=== PATIENT | male | born 1950 | race Caucasian/White ===

== ENCOUNTER 2020-02-22 10:48 | Emergency (ER) | payer BC, SELFPAY ==
[2020-02-22 11:03] VITALS: BP 150/92; PULSE 76; RESP 16; TEMP 36.8; O2SAT 99
--- NOTE | 2020-02-22 11:22 | ED.BACK ---
HPI - Back Pain/Injury General Chief Complaint: Back Pain/Injury Stated Complaint: lower back pain Time Seen by Provider: 02/22/20 11:13 Source: patient and RN notes reviewed Mode of arrival: ambulatory Limitations: no limitations History of Present Illness HPI Narrative: Patient presents today complaining of low back pain. He fell off the second rung of a ladder this morning at 5 AM onto some concrete at home. Denies any head strike or loss of consciousness. Denies radiation of the pain. Denies numbness or tingling in the extremities or genitals. Denies any loss of bowel or bladder control. He took a dose of Tylenol at 6 AM without relief. Currently rates his pain 12/12. MD elicited complaint: back pain Related Data Home Medications Medication Instructions Recorded Confirmed bimatoprost [Lumigan] 1 drp HS 02/22/20 02/22/20 brinzolamide-brimonidine 1 drp BID 02/22/20 02/22/20 [Simbrinza] timolol maleate 1 drp BID 02/22/20 02/22/20 Allergies Allergy/AdvReac Type Severity Reaction Status Date / Time No Known Allergies Allergy Verified 02/22/20 10:52 Review of Systems Review of Systems: Narrative: CONSTITUTIONAL: Denies body aches, fever, chills, or sweats. EYES: Denies visual changes, redness, or discharge. ENT: Denies rhinorrhea, congestion, sore throat, or otalgia. CARDIOVASCULAR: Denies chest pain, palpitations, or edema. RESPIRATORY: Denies cough or dyspnea. GASTROINTESTINAL: Denies abdominal pain, nausea, vomiting, or diarrhea. GENITOURINARY: Denies dysuria or hematuria. SKIN: Denies rash, itching, or wounds. MUSCULOSKELETAL: Denies joint pain, or myalgia. + Low back pain NEUROLOGIC: Denies headache, numbness, tingling, or weakness. PSYCH: Denies depression or anxiety. [facility] Past Medical History Medical History (Updated 02/22/20 @ 11:27 by Colette Chaves, [place], ) Glaucoma Hypercholesterolemia Hypertension Family History Family History (Updated 04/01/14 @ 07:13 by DOCTOR UNKNOWN) Mother Hypertension Family history of coronary artery disease Father Cerebrovascular accident Family history of malignant neoplasm Social History Social History Smoking status: Never smoker Alcohol intake: current Gender identity (if verbalized by the patient): Male Comments At time of signature, I have reviewed and agree with nursing past medical, surgical, social and family history unless otherwise noted. Please see nursing chart for further information. There is no relevant family history pertinent to the presenting complaint Exam Narrative: Exam Narrative: GENERAL: Well-appearing, well-nourished, and in no acute distress. HEAD: Normocephalic, atraumatic. EYES: EOMI. No redness or drainage. Conjunctivae normal. ENT: Mucous membranes pink and moist. NECK: Normal AROM. CHEST: No respiratory distress. MUSCULOSKELETAL: No bony tenderness of the spine. No step-off or deformity noted. No bruising or edema noted. No paraspinal muscle tenderness bilaterally. Localizes pain to the lower lumbar area that can extend, from hip to hip when it gets bad. Sensation intact. Saddle sensation intact. Capillary refill normal. Posterior tibial pulses normal. Foot push and pulls equal and strong.. EXTREMITIES: Normal range of motion. No edema. SKIN: Warm, dry, no rash. Capillary refill normal. Normal skin turgor. NEURO: No focal deficits. Alert and oriented x3. Gait steady. PSYCH: Normal affect. No signs of depression or anxiety. Course Vital Signs Vital signs: Vital Signs Temperature 98.3 F 02/22/20 11:03 Pulse Rate 76 02/22/20 11:03 Respiratory Rate 16 02/22/20 11:03 Blood Pressure 150/92 H 02/22/20 11:03 Pulse Oximetry 99 02/22/20 11:03 Temperature 98.3 F 02/22/20 11:03 Pulse Rate 76 02/22/20 11:03 Respiratory Rate 16 02/22/20 11:03 Blood Pressure 150/92 H 02/22/20 11:03 Pulse Oximetry 99 02/22/20 11:03 Reviewed. Pt has been instructed to fo
== END 2020-02-22 11:30 | disposition home or self-care (01) ==
PROVIDERS: Emergency Provider Nurse Practitioner; PCP Family Medicine
DX: S39.012A Strain of muscle, fascia and tendon of lower back, initial encounter (principal); W11.XXXA Fall on and from ladder, initial encounter; H40.9 Unspecified glaucoma; E78.00 Pure hypercholesterolemia, unspecified; I10 Essential (primary) hypertension
CPT/HCPCS: 99213; G0463

== ENCOUNTER 2020-02-26 07:30 | Emergency (ER) | payer BC, SELFPAY ==
--- NOTE | ~2020-02-26 | CT_ITS ---
EXAMINATION: CT lumbar spine wo con DATE: 02/26/2020 08:11 INDICATION: Low back pain. Fall from ladder one week ago. TECHNIQUE: Computed tomography (CT) of the lumbar spine was performed without intravenous contrast. A utomated exposure control and iterative reconstruction technique were employed. The dose-length produ ct was 825.01 mGy-cm. COMPARISON: CT abdomen and pelvis 07/22/2014 FINDINGS: There is 6 degrees levocurvature of lumbar spine. There is 3 mm anterolisthesis of L2 on L3 . There is a compression fracture of L3 with 1/5 loss of height. There is mild chronic anterior wedgi ng of T12 and L1 vertebral bodies. There are Schmorl's nodes from T11-T12 through L1-L2. There is mil dly decreased disc height at L3-L4. The following disc levels are specifically discussed: L1-L2: The disc does not extend beyond the endplate margin. There is severe bilateral facet joint ost eoarthritis. There is no neural foraminal stenosis. There is no central canal stenosis. L2-L3: The disc is bulging. There is severe bilateral facet joint osteoarthritis. There is mild bilat eral neural foraminal stenosis. There is moderate central canal stenosis. L3-L4: The disc is bulging. There is severe right and moderate left facet joint osteoarthritis. There is moderate right and mild left neural foraminal stenosis. There is mild central canal stenosis. L4-L5: The disc is bulging. There is severe bilateral facet joint osteoarthritis. There is moderate b ilateral neural foraminal stenosis. There is mild central canal stenosis. L5-S1: The disc is bulging. There is mild right and moderate left facet joint osteoarthritis. There i s mild right and moderate left neural foraminal stenosis. There is mild central canal stenosis. IMPRESSION: 1. Acute L3 compression fracture. 2. Moderate lumbar spondylosis. Reviewed, dictated and finalized at location A.
[2020-02-26 07:30] VITALS: BP 152/96; PULSE 100; RESP 19; TEMP 36.4; O2SAT 95
--- NOTE | 2020-02-26 07:40 | ED.BACK ---
HPI - Back Pain/Injury General Chief Complaint: Back Pain/Injury Stated Complaint: back spasm Time Seen by Provider: 02/26/20 07:30 Source: RN notes reviewed History of Present Illness HPI Narrative: Patient presents emergency department via EMS for low back pain. Patient states that on 02/21 he fell off of a ladder approximately 2 steps landed flat on his back. He states that that time he had gone to the urgent care and been diagnosed with lumbar strain states no x-rays been taken. States that he began to have severe muscle spasms in his lower back yesterday with spasms of pain that come in waves. States is worse on the right. He denies any new trauma or injury. He denies any fevers or chills abdominal pain nausea vomiting numbness or tingling in the extremities bowel or bladder incontinence or any other symptoms. States he took no previous pain medication for the symptoms Related Data Home Medications Medication Instructions Recorded Confirmed bimatoprost [Lumigan] 1 drp HS 02/22/20 02/22/20 brinzolamide-brimonidine 1 drp BID 02/22/20 02/22/20 [Simbrinza] timolol maleate 1 drp BID 02/22/20 02/22/20 Allergies Allergy/AdvReac Type Severity Reaction Status Date / Time No Known Allergies Allergy Verified 02/26/20 07:39 Review of Systems Review of Systems: Narrative: Gen.: Denies fevers or chills ENT: Denies congestion Respiratory: Denies shortness of breath or cough CV: Denies chest pain or palpitations GI: Denies abdominal pain nausea, emesis or diarrhea denies burning, urgency, frequency or hematuria Musculoskeletal: See HPI Neuro: Denies numbness, tingling, weakness or focal weakness Skin: Denies rash Except as documented, all other systems reviewed and negative PMFSH Past Medical History Medical History Glaucoma Hypercholesterolemia Hypertension Family History Family History (Updated 04/01/14 @ 07:13 by DOCTOR UNKNOWN) Mother Hypertension Family history of coronary artery disease Father Cerebrovascular accident Family history of malignant neoplasm Social History Social History Smoking status: Never smoker Alcohol intake: current Gender identity (if verbalized by the patient): Male Exam Narrative: Exam Narrative: APPEARANCE: No acute distress, nontoxic, resting in bed Eyes: EOMI HEENT: Normocephalic, atraumatic, CV: Regular rate and rhythm without murmur RESPIRATORY: No respiratory distress. Clear to auscultation bilaterally. Abdomen: Soft and nontender, no rebound or guarding MUSCULOSKELETAl: Moves all extremities, no clubbing cyanosis or edema Back: No midline lumbar tenderness to palpation or step-off, tender to palpation over right paravertebral muscles L3-5 , pain increased with forward flexion NEURO: Awake and alert. Following commands, speech normal, no focal deficits, muscle strength 5 out of 5 bilateral lower extremities, bilateral patellar reflex 2+ SKIN:: Warm, dry. Normal Color no rash or lesions Course Course Emergency Course: Discussed with Dr. Meneses presentation work-up. Agrees with plan for discharge with follow-up as an outpatient Discussed with patient results of workup and diagnosis. Discussed need for follow-up with primary care, proper use of medication, and reasons to return to the emergency department. Patient understands and agrees to current treatment plan Vital Signs Vital signs: Vital Signs Temperature 97.5 F L 02/26/20 07:30 Pulse Rate 100 02/26/20 07:30 Respiratory Rate 19 02/26/20 07:30 Blood Pressure 152/96 H 02/26/20 07:30 Pulse Oximetry 95 02/26/20 07:30 Temperature 97.5 F L 02/26/20 07:30 Pulse Rate 100 02/26/20 07:30 Respiratory Rate 19 02/26/20 07:30 Blood Pressure 152/96 H 02/26/20 07:30 Pulse Oximetry 95 02/26/20 07:30 MDM - Back Pain/Injury Imaging Data Radiologist's impression:
[2020-02-26] MEDS: KETOROLAC 30 MG/ML VIAL (*BKC) IV PUSH (07:49)
== END 2020-02-26 09:36 | disposition home or self-care (01) ==
PROVIDERS: Emergency Provider Emergency Medicine; PCP Family Medicine
DX: S32.038A Other fracture of third lumbar vertebra, initial encounter for closed fracture (principal); H40.9 Unspecified glaucoma; E78.00 Pure hypercholesterolemia, unspecified; I10 Essential (primary) hypertension; M47.816 Spondylosis without myelopathy or radiculopathy, lumbar region; W11.XXXA Fall on and from ladder, initial encounter
CPT/HCPCS: 72131; 96374; 96375; 99284; J1885; J3360

== ENCOUNTER → 2020-04-18 07:57 | Outpatient (CLI) | payer BC, SELFPAY ==
--- NOTE | ~2020-04-18 | XR_ITS ---
XR lumbar spine 2-3V 04/18/2020 09:44 Indication: L3 compression fracture Procedure: 3 views lumbar spine Comparison: CT dated 02/26/2020 Findings: Mild superior endplate compression fracture of L3 without significant change to appearance allowing for differences of technique. There is disc narrowing at L3-4, L4-5 and L5-S1. No evidence f or spondylolisthesis. Mild levocurvature of the lumbar spine. Sacral foramen are symmetric. Impression: 1: Stable height of L3 compression fracture compared with CT dated 02/26/2020 Allowing for differences of technique. 2: Mild lumbar spondylosis. Reviewed, dictated and finalized at location B. Impression: 1: Stable height of L3 compression fracture compared with CT dated 02/26/2020 Allowing for differences of technique. 2: Mild lumbar spondylosis.
== END ==
PROVIDERS: PCP Family Medicine; Visit Provider Neurological Surgery
DX: S32.030A Wedge compression fracture of third lumbar vertebra, initial encounter for closed fracture (principal); X58.XXXA Exposure to other specified factors, initial encounter; M47.896 Other spondylosis, lumbar region
CPT/HCPCS: 72100

== ENCOUNTER 2020-07-13 09:34 | Outpatient (CLI) | payer BC, MEDICARE, SELFPAY ==
--- NOTE | 2020-07-13 11:30 | NEURO_ITS ---
Impression: # Complains of numbness of feet. # Borderline neuropathy with left lower extremity decreased responses. # Needle/EMG exam neurogenic in bilateral EDB. # Higher involvement superimposed on neuropathy needs to be ruled out due to asymmetrical responses. Nerve Conduction Studies Anti Sensory Summary Table Stim Site NR Peak (ms) P-T Amp (?V) Site1 Site2 Delta-P (ms) Dist (cm) Tino (m/s) Left Sup Fibular Anti Sensory (Ant Lat Mall) NO RESPONSE 14 cm NR 14 cm Ant Lat Mall 16.0 Right Sup Fibular Anti Sensory (Ant Lat Mall) 14 cm 3.2 5.4 14 cm Ant Lat Mall 3.2 16.0 50 Left Sural Anti Sensory (Lat Mall) Calf 4.0 24.6 Calf Lat Mall 4.0 16.0 40 Right Sural Anti Sensory (Lat Mall) Calf 3.0 17.9 Calf Lat Mall 3.0 16.0 53 Motor Summary Table Stim Site NR Onset (ms) O-P Amp (mV) Site1 Site2 Delta-0 (ms) Dist (cm) Tino (m/s) Left Peroneal Motor (Vastus Med) Ankle 5.2 0.8 Popit Ankle 9.8 39.0 40 Popit 15.0 1.5 Right Peroneal Motor (Vastus Med) Ankle 5.4 0.9 Popit Ankle 9.5 38.0 40 Popit 14.9 1.5 Left Tibial Motor (Abd Suresh Brev) Ankle 5.5 0.3 Knee Ankle 10.7 44.0 41 Knee 16.2 1.0 Right Tibial Motor (Abd Suresh Brev) Ankle 5.7 2.8 Knee Ankle 10.5 43.0 41 Knee 16.2 2.0 F Wave Studies NR F-Lat (ms) L-R F-Lat (ms) Left Peroneal (Mrkrs) (EDB) 62.19 1.29 Right Peroneal (Mrkrs) (EDB) 63.48 1.29 Left Tibial (Mrkrs) (Abd Hallucis) 63.49 0.35 Right Tibial (Mrkrs) (Abd Hallucis) 63.84 0.35 EMG Side Muscle Nerve Root Ins Act Fibs Amp Dur Recrt Comment Right AntTibialis Dp Br Fibular L4-5 Nml Nml Nml Nml Nml Right Gastroc Tibial S1-2 Nml Nml Nml Nml Nml Right Fibularis Long Sup Br Fibular L5-S1 Nml Nml Nml Nml Nml Right Flex Dig Long Tibial L5-S2 Nml Nml Nml >12ms Nml Right Ext Dig Brev Dp Br Fibular L5, S1 Nml Nml Nml >12ms Reduced Left AntTibialis Dp Br Fibular L4-5 Nml Nml Nml Nml Nml Left Gastroc Tibial S1-2 Nml Nml Nml Nml Nml Left Fibularis Long Sup Br Fibular L5-S1 Nml Nml Nml Nml Nml Left Flex Dig Long Tibial L5-S2 Nml Nml Nml >12ms Nml Left Ext Dig Brev Dp Br Fibular L5, S1 Nml Nml Nml >12ms Reduced MTDD
== END 2020-07-13 09:35 | disposition home or self-care (01) ==
LOC: ANHNEURO 09:38
PROVIDERS: PCP Family Medicine; Visit Provider Physician Assistant Medical
DX: R20.2 Paresthesia of skin (principal)
CPT/HCPCS: 95886; 95910

== ENCOUNTER 2021-07-12 09:48 | Outpatient (CLI) | payer MEDICARE, SELFPAY ==
--- NOTE | 2021-07-12 11:00 | NEURO_ITS ---
Impression: # Complains of numbness of feet. 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 # Needle/EMG neurogenic changes in EDB, right more than left. # Clinical correlation recommended. Nerve Conduction Studies Anti Sensory Summary Table Stim Site NR Peak (ms) P-T Amp (?V) Site1 Site2 Delta-P (ms) Dist (cm) Tino (m/s) Left Sup Fibular Anti Sensory (Ant Lat Mall) 14 cm 3.9 11.2 14 cm Ant Lat Mall 3.9 16.0 41 Right Sup Fibular Anti Sensory (Ant Lat Mall) 14 cm 3.9 7.7 14 cm Ant Lat Mall 3.9 16.0 41 Left Sural Anti Sensory (Lat Mall) Calf 3.6 11.4 Calf Lat Mall 3.6 16.0 44 Right Sural Anti Sensory (Lat Mall) Calf 3.4 4.7 Calf Lat Mall 3.4 16.0 47 Motor Summary Table Stim Site NR Onset (ms) O-P Amp (mV) Site1 Site2 Delta-0 (ms) Dist (cm) Tino (m/s) Left Peroneal Motor (Vastus Med) Ankle 4.5 1.9 Popit Ankle 10.3 40.0 39 Popit 14.8 1.3 Right Peroneal Motor (Vastus Med) Ankle 5.1 3.0 Popit Ankle 10.1 38.0 38 Popit 15.2 1.6 Left Tibial Motor (Abd Suresh Brev) Ankle 5.0 0.7 Knee Ankle 11.9 43.0 36 Knee 16.9 0.9 Right Tibial Motor (Abd Suresh Brev) Ankle 5.2 2.0 Knee Ankle 10.7 39.0 36 Knee 15.9 1.6 F Wave Studies NR F-Lat (ms) L-R F-Lat (ms) Left Peroneal (Mrkrs) (EDB) 62.32 0.40 Right Peroneal (Mrkrs) (EDB) 62.71 0.40 Left Tibial (Mrkrs) (Abd Hallucis) 62.76 0.35 Right Tibial (Mrkrs) (Abd Hallucis) 63.11 0.35 EMG Side Muscle Nerve Root Ins Act Fibs Amp Dur Recrt Comment Right AntTibialis Dp Br Fibular L4-5 Nml Nml Nml Nml Nml Right Gastroc Tibial S1-2 Nml Nml Nml Nml Nml Right Fibularis Long Sup Br Fibular L5-S1 Nml Nml Nml Nml Nml Right Flex Dig Long Tibial L5-S2 Nml Nml Nml Nml Nml Right Ext Dig Brev Dp Br Fibular L5, S1 Nml Nml Incr >12ms Reduced Left AntTibialis Dp Br Fibular L4-5 Nml Nml Nml Nml Nml Left Gastroc Tibial S1-2 Nml Nml Nml Nml Nml Left Fibularis Long Sup Br Fibular L5-S1 Nml Nml Nml Nml Nml Left Flex Dig Long Tibial L5-S2 Nml Nml Nml Nml Nml Left Ext Dig Brev Dp Br Fibular L5, S1 Nml Nml Incr >12ms Reduced MTDD
== END 2021-07-12 09:49 | disposition home or self-care (01) ==
LOC: ANHNEURO 09:50
PROVIDERS: PCP Family Medicine; Visit Provider Psychiatry & Neurology Neurology
DX: R20.2 Paresthesia of skin (principal); G62.9 Polyneuropathy, unspecified
CPT/HCPCS: 95886; 95910

== ENCOUNTER 2021-12-02 20:39 | Observation (INO) | payer MEDICARE, SELFPAY ==
--- NOTE | ~2021-12-02 | XR_ITS ---
EXAMINATION: XR chest 2V Exam Date/Time: 12/02/2021 21:00 CDT CLINICAL HISTORY: RT SIDED chest pain TODAY, HX HTN, NO CARDIAC HX Comparison: 08/10/2014. RESULT: Lines, tubes, and devices: None. Lungs and pleura: Clear. Cardiomediastinal silhouette: Stable cardiomediastinal silhouette. Other: No acute osseous or upper abdominal finding. IMPRESSION: No acute cardiopulmonary process Reviewed, dictated and finalized at location K.
--- NOTE | 2021-12-02 20:42 | ECG_ITS ---
Measurements Intervals [place] Rate: 94 P: 35 ME: 164 QRS: -9 QRSD: 89 T: 69 QT: 323 QTc: 405 Interpretive Statements SINUS RHYTHM MINIMAL Q WAVES- HIGH LATERAL LEADS BASELINE ARTIFACT- I, II, AVR BORDERLINE ECG Electronically Signed On 12-03-2021 6:36:40 CDT by Christoph Rosales D.O.
[2021-12-02 21:14] VITALS: BP 167/76; PULSE 85; RESP 15; TEMP 36.8; O2SAT 100; O2SAT 99
--- NOTE | 2021-12-02 21:29 | ED.CHESTPAIN ---
HPI - Chest Pain General Chief Complaint: Chest Pain Stated Complaint: chest pain Time Seen by Provider: 12/02/21 20:52 History of Present Illness HPI narrative: Patient presents with chest pain. Ports he had intermittent chest pain since about 2:00 in the afternoon is mainly on his right chest he describes an achy sensation and sometimes rates to his left arm sometimes radiate to his back. Symptoms have not improved throughout the day so came to the ER for evaluation. Reports he tried working out was afternoon that did trigger his chest pain that is exacerbation with physical activity. His pain was associated with mild shortness of breath denies any diaphoresis nausea or vomiting. Related Data Home Medications Medication Instructions Recorded Confirmed brinzolamide-brimonidine 1 drp EACH EYE BID 12/03/21 12/03/21 [Simbrinza] Allergies Allergy/AdvReac Type Severity Reaction Status Date / Time No Known Allergies Allergy Verified 12/02/21 21:18 Review of Systems Review of Systems: CONSTITUTIONAL: Denies fever, chills, or sweats. EYES: Denies visual changes, redness, or discharge. ENT: Denies rhinorrhea, congestion, sore throat, or otalgia. CARDIOVASCULAR: Denies palpitations, or edema. RESPIRATORY: Denies cough. GASTROINTESTINAL: Denies abdominal pain, nausea, vomiting, or diarrhea. GENITOURINARY: Denies dysuria or hematuria. SKIN: Denies rash or itching. MUSCULOSKELETAL: Denies back pain, joint pain, or myalgia. NEUROLOGIC: Denies headache, numbness, dizziness, or weakness. PSYCHIATRIC: Denies anxiety or depression. All systems reviewed & are unremarkable except as noted in HPI and below PMFSH Past Medical History Medical History BMI 32.0-32.9,adult Glaucoma Hypercholesterolemia Hypertension Family History Family History (Updated 12/03/21 @ 00:56 by Megan Caldwell RN) Mother Family history of coronary artery disease Hypertension COPD (chronic obstructive pulmonary disease) Father Family history of malignant neoplasm Cerebrovascular accident Sibling Brain cancer Social History Social History Smoking packs per day: 1.5 Smoking cigarettes per day: 30.0 Years smoked: 14 Smoking pack-years: 21.00 Smoking status: Former smoker Tobacco type: cigarettes Second hand tobacco smoke exposure: No Alcohol intake: current Drinks per week: 10 Substance use: never Substance use type: does not use Gender identity (if verbalized by the patient): Male Spiritual care concerns: No Exam Narrative: GENERAL: Well-appearing, well-nourished, and in no acute distress. HEAD: Normocephalic, atraumatic. EYES: PERRLA and EOMI. ENT: Nares clear, no rhinorrhea or epistaxis. Mucous membranes moist. NECK: Supple. No masses. No JVD CHEST: Clear to auscultation. No respiratory distress. No wheezes rales or rhonchi HEART: Regular rate and rhythm. No murmur heard. Normal peripheral pulses. ABDOMEN: Soft, nontender, nondistended, normal active bowel sounds. EXTREMITIES: Normal range of motion. No edema. SKIN: Warm, dry, no rash. NEURO: No focal deficits. Alert and oriented x3. PSYCH: Normal mood and affect. Course Reevaluation(s) Reevaluation #1: Patient resting comfortably, has no active chest pain. Results thus far reviewed with patient. Also discussed work-up with cardiology as well as hospitalist team. Due to patient's risk factors he will be admitted for further management. Patient is comfortable inpatient plan. Date: 12/02/21 Time: 23:38 Vital Signs Vital signs: Vital Signs Temperature 36.8 C 12/02/21 21:14 Pulse Rate 85 12/02/21 21:14 Respiratory Rate 15 12/02/21 21:14 Blood Pressure 167/76 H 12/02/21 21:14 Pulse Oximetry 99 12/02/21 21:14 Temperature 36.4 C 12/03/21 06:38 Pulse Rate 83 12/03/21 06:38 Respiratory Rate 20 12/03/21 06:38
[2021-12-02 21:32] LABS: Basophils Absolute Auto 0.1 K/mm3 (0.0-0.1); Basophils Percent Auto 0.7 % (0.2-1.2); Eosinophils Absolute Auto 0.4 K/mm3 (0-0.3); Eosinophils Percent Auto 4.9 % (0-4.4); Hematocrit 44.8 % (42.0-52.0); Hemoglobin 15.1 g/dL (14.0-18.0); Immature Granulocyte Absolute 0.02 K/mm3 (0.00-0.031); Immature Granulocyte Percent A 0.2 % (0-0.5); Lymphocytes Absolute Auto 2.87 K/mm3 (0.9-3.2); Lymphocytes Percent Auto 35.7 % (18.3-44.2); Mean Corpuscular HGB Conc 33.7 g/dl (32-36); Mean Corpuscular Hemoglobin 30.3 pg (26-34); Mean Platelet Volume 10.2 fl (7.4-10.4); Monocytes Absolute Auto 0.9 K/mm3 (0.1-0.6); Monocytes Percent Auto 10.9 % (2.6-8.5); Neutrophils Absolute Auto 3.8 K/mm3 (1.3-6.7); Neutrophils Percent Auto 47.6 % (45.5-73.1); Platelet Count Result 283 k/mm3 (150-375); Red Blood Count 4.98 M/mm3 (4.6-6.20); Red Cell Distribution Width 12.1 % (11.5-14.5)
[2021-12-02 21:39] LABS: Prothrombin Time 12.6 Seconds (11.1-14.7)
[2021-12-02 21:40] LABS: Partial Thromboplastin Time 32.8 SECONDS (22.3-36.8)
[2021-12-02 21:43] LABS: Alanine Aminotransferase 34 U/L (4-50); Albumin Level 4.5 g/dL (3.5-5.1); Alkaline Phosphatase 74 U/L (38-126); Anion Gap 8 mmol/L (8-16); Aspartate Amino Transferase 31 U/L (17-59); Bilirubin,Total 0.4 mg/dL (0.2-1.3); Blood Urea Nitrogen 15 mg/dL (9-20); Carbon Dioxide 24 mmol/L (22-30); Chloride 107 mmol/L (98-107); Estimated CRCL calculation 98 ml/min; Estimated Glomerular Filt Rate > 60; Glucose 112 mg/dL (65-110); Lipase 247 U/L (23-300); Potassium 4.1 mmol/L (3.4-5.0); Sodium 139 mmol/L (137-145)
[2021-12-02 21:53] LABS: Troponin I < 0.012 ng/mL (0.000-0.034)
[2021-12-02 23:50] LABS: Troponin I < 0.012 ng/mL (0.000-0.034)
[2021-12-02 23:51] VITALS: BP 162/85; PULSE 74; RESP 18; O2SAT 100
[2021-12-03] VITALS (13 sets, daily range): BP systolic 137–186; BP diastolic 62–92; PULSE 65–99; RESP 20–22; TEMP 36.2–36.4; O2SAT 96–100; BMI 31.6; BMI 33.3
--- NOTE | 2021-12-03 00:32 | PC.NURSE ---
This patient, Von A Pena, was admitted to IMU Room 202-01 at 0027 on 12/03/21. Patient oriented to hospital policies and general routines including ID bracelet, bed and alarms, visiting hours, pain management, procedures, bathroom and other care routines, personal items, smoking policy, room service/diet, and visiting hours. Information on how to activate the Rapid Response Team has been discussed. Patient is encouraged to report perceived risks to care and to ask questions if they do not understand what they are told or what they should do.
--- NOTE | 2021-12-03 00:49 | PM.IMHP ---
H&P: HPI History of Present Illness Date/Time: 12/03/21 00:49 Chief Complaint: Chest pain. Narrative: This is a 71-year-old male with past medical history significant for hypertension, dyslipidemia. Patient presents to the emergency room due to chest pain localized to the right side which is no radiating is intermittent is 3/10 in intensity has had for roughly 1 day duration known accompanied by diaphoresis or nausea or vomiting or dizziness, no palpitations, no leg swelling, no PND, no orthopnea, this happened while the patient was on his glider and was during not intense work out session, patient took flexor ill but did not go away and decided to come to the emergency room for further evaluation. In emergency room preliminary workup has been essentially nonrevealing. Patient is been admitted for further evaluation management and treatment. Review of Systems Review of Systems: Right-sided chest pain. Constitutional: Constitutional: Denies chills, Denies fatigue, Denies fever(s), Denies malaise, Denies night sweats and Denies weakness Eyes: Eyes: Denies change in vision ENT: Denies dysphagia, Denies vertigo, Denies dizziness, Denies nasal congestion, Denies nasal discharge, Denies nasal obstruction and Denies odynophagia Cardiovascular: Cardiovascular: Reports chest pain, Denies diaphoresis, Denies pedal edema, Denies irregular heart rhythm, Denies claudication, Denies leg edema, Denies lightheadedness, Denies radiating jaw, neck or arm pain, Denies palpitations, Denies dyspnea on exertion, Denies orthopnea and Denies paroxysmal nocturnal dyspnea Respiratory: Respiratory: Denies cough Gastrointestinal: Gastrointestinal: Denies abdominal pain, Denies dyspepsia, Denies heartburn, Denies diarrhea, Denies nausea and Denies vomiting Genitourinary: Genitourinary: Denies dysuria Musculoskeletal: Musculoskeletal: Denies back pain, Denies arthralgias, Denies joint swelling and Denies neck pain Integumentary/Breasts: Skin/Breast: Denies rash Neurologic: Denies focal weakness and Denies Sensory deficit (Neuro) Psychiatric: Psychiatric: Reports no additional psychiatric complaints and Reports as per HPI Endocrine: Endocrine: Denies cold intolerance, Denies heat intolerance, Denies polyphagia, Denies polydipsia and Denies palpitations Hematologic/Lymphatic: Hematologic/Lymphatic: Reports no additional hematologic/lymphatic complaints and Reports as per HPI Allergic/Immunologic: Allergic/Immunologic: Reports no additional allergic/immunologic complaints and Reports as per HPI PMFSH Past Medical History Medical History BMI 32.0-32.9,adult Glaucoma Hypercholesterolemia Hypertension Family History Family History (Updated 12/03/21 @ 00:56 by Megan Caldwell RN) Mother Family history of coronary artery disease Hypertension COPD (chronic obstructive pulmonary disease) Father Family history of malignant neoplasm Cerebrovascular accident Sibling Brain cancer Social History Social History Smoking packs per day: 1.5 Smoking cigarettes per day: 30.0 Years smoked: 14 Smoking pack-years: 21.00 Smoking status: Former smoker Tobacco type: cigarettes Second hand tobacco smoke exposure: No Alcohol intake: current Drinks per week: 10 Substance use: never Substance use type: does not use Gender identity (if verbalized by the patient): Male Spiritual care concerns: No Meds Home Medications and Allergies Home Medications Medication Instructions Recorded Confirmed Type atorvastatin 40 mg tablet 40 mg PO DAILY #30 tablet 10/23/21 12/03/21 Rx lisinopril 30 mg tablet 30 mg PO DAILY #90 tablet 11/20/21 12/03/21 Rx brinzolamide-brimonidine 1 drp EACH EYE BID 12/03/21 12/03/21 History [Simbrinza] Allergies Allergy/AdvReac Type Severity Reaction Status Date / Time No Known Allergies Allergy
[2021-12-03 07:22] LABS: Troponin I < 0.012 ng/mL (0.000-0.034)
[2021-12-03] MEDS: ENOXAPARIN 40 MG/0.4 ML SYRINGE SUB-Q (08:33)
[2021-12-03 09:12] LABS: Basophils Absolute Auto 0.1 K/mm3 (0.0-0.1); Basophils Percent Auto 0.8 % (0.2-1.2); Eosinophils Absolute Auto 0.3 K/mm3 (0-0.3); Eosinophils Percent Auto 3.2 % (0-4.4); Hematocrit 46.5 % (42.0-52.0); Hemoglobin 15.4 g/dL (14.0-18.0); Immature Granulocyte Absolute 0.03 K/mm3 (0.00-0.031); Immature Granulocyte Percent A 0.4 % (0-0.5); Lymphocytes Absolute Auto 2.27 K/mm3 (0.9-3.2); Lymphocytes Percent Auto 27.2 % (18.3-44.2); Mean Corpuscular HGB Conc 33.1 g/dl (32-36); Mean Corpuscular Hemoglobin 30.3 pg (26-34); Mean Corpuscular Volume 91.5 fl (80-100); Mean Platelet Volume 10.2 fl (7.4-10.4); Monocytes Absolute Auto 0.8 K/mm3 (0.1-0.6); Monocytes Percent Auto 9.3 % (2.6-8.5); Neutrophils Absolute Auto 4.9 K/mm3 (1.3-6.7); Neutrophils Percent Auto 59.1 % (45.5-73.1); Platelet Count Result 286 k/mm3 (150-375); Red Blood Count 5.08 M/mm3 (4.6-6.20); Red Cell Distribution Width 12.1 % (11.5-14.5); White Blood Count 8.4 K/mm3 (4.5-10.0)
[2021-12-03 09:21] LABS: Alanine Aminotransferase 33 U/L (4-50); Albumin Level 4.7 g/dL (3.5-5.1); Alkaline Phosphatase 81 U/L (38-126); Anion Gap 8 mmol/L (8-16); Aspartate Amino Transferase 25 U/L (17-59); Bilirubin,Total 0.5 mg/dL (0.2-1.3); Blood Urea Nitrogen 11 mg/dL (9-20); Calcium 8.9 mg/dL (8.4-10.2); Carbon Dioxide 25 mmol/L (22-30); Chloride 108 mmol/L (98-107); Estimated CRCL calculation 101 ml/min; Estimated Glomerular Filt Rate > 60; Glucose 109 mg/dL (65-110); Potassium 4.1 mmol/L (3.4-5.0); Sodium 141 mmol/L (137-145)
--- NOTE | 2021-12-03 09:37 | PM.CNCAR ---
Assessment and Plan Assessment and plan (1) Chest pain, atypical: Code(s): R07.89 - Other chest pain Status: Acute Assessment and Plan: Episodic chest discomfort which is very brief and atypical, very unlikely to be cardiac, probably musculoskeletal. Negative troponins and normal EKG Okay for discharge from my point of view. Will arrange for an outpatient stress test to be thorough. (2) Essential hypertension: Code(s): I10 - Essential (primary) hypertension Status: Acute Assessment and Plan: Was running a little high on admission, better today. (3) Mixed hyperlipidemia: Code(s): E78.2 - Mixed hyperlipidemia Status: Acute Assessment and Plan: Takes atorvastatin. (4) Family history of coronary artery disease: Code(s): Z82.49 - Family history of ischemic heart disease and other diseases of the circulatory system Status: Acute History of Present Illness History of Present Illness Consult date/time: 12/03/21 09:37 Requesting physician: Perfecto Tavares MD Consult reason: chest pain Reason For Visit: unstable angina Narrative: Von Pena this 71-year-old male whom I was asked to see at the request of Dr. Tavares for my advice and opinion regarding chest pain in consultation. History of hypertension and hyperlipidemia. Nonsmoker. Positive family history of CAD. The patient has been in his normal state of health until yesterday when he was sitting watching the baseball game and had a brief episode of right parasternal aching which lasted for about a second or 2, which felt like a pulled muscle. This dull ache recurred off and on through the day but again only lasted for second or two at most, and was completely gone in between times. At one point he felt like he needed to take more deep breaths although he was not very short of breath. No nausea, vomiting or diaphoresis. He did his usual exercise on the [place] 3 times and once he had a again another brief episode of aching lasting for a second. He has had a couple episodes today as well. In general the patient has been able to exert with no particular problems with shortness of breath or chest pain. No typical anginal symptoms. Review of Systems Constitutional: Constitutional: Denies fatigue and Denies weakness Eyes: Eyes: Reports no additional eye complaints ENT: Denies epistaxis and Denies nasal congestion Cardiovascular: Cardiovascular: Reports chest pain, Denies diaphoresis, Denies pedal edema and Denies lightheadedness Respiratory: Respiratory: Denies cough and Denies dyspnea Gastrointestinal: Gastrointestinal: Denies abdominal pain and Denies hematochezia Genitourinary: Genitourinary: Denies hematuria Musculoskeletal: Musculoskeletal: Reports no additional musculoskeletal complaints Integumentary/Breasts: Skin/Breast: Denies rash Neurologic: Denies confusion Psychiatric: Psychiatric: Denies behavioral changes [facility] Past Medical History Medical History (Updated 12/03/21 @ 10:06 by Kiah Valenzuela MD) BMI 32.0-32.9,adult Colon cancer Disease-free after 5 years Family history of coronary artery disease Glaucoma Hypercholesterolemia Hypertension Family History Family History (Updated 12/03/21 @ 10:05 by Kiah Valenzuela MD) Mother Family history of coronary artery disease Hypertension COPD (chronic obstructive pulmonary disease) Heart attack Couple of heart attacks in her 60s, 80 y.o. Father Family history of malignant neoplasm Cerebrovascular accident a couple years after a massive stroke during carotid endarterectomy. at age of 8080 years old Bladder cancer Sibling Brain cancer Social History Social History (Updated 12/03/21 @ 10:05 by Kiah Valenzuela MD) Social History: , 1 daughter. Retired, used to sell plumbing equipment. Smoking packs per day: 1.5 Smoking cigarettes per day: 30.0 Years smok
[2021-12-03] MEDS: lisinopriL 10 MG TABLET 30 MG PO (09:58)
[2021-12-03] MEDS: BRIMONIDINE TARTRATE 0.2% OP SOLN 5 ML BTL 1 DROP EACH EYE (10:00)
[2021-12-03] MEDS: BRINZOLAMIDE 1% OPHTH SUSP 10 ML 1 DROP EACH EYE (10:00)
--- NOTE | 2021-12-03 12:06 | PM.DS ---
DS: Admitting Diagnosis Discharge Date 12/03/21 1600 Admitting Diagnosis Chest Pain DS: Discharge Diagnosis Discharge Diagnosis (1) Chest pain, atypical: Code(s): R07.89 - Other chest pain Status: Acute Assessment and Plan: Vital signs have been stable during this admission. Initial EKG with no changes. Serial troponins all negative. Cardiology has been consulted feels this is more more likely to be musculoskeletal pain. Cardiology okay with discharge, and will follow up outpatient for a stress test. (2) BMI 32.0-32.9,adult: Code(s): Z68.32 - Body mass index [BMI] 32.0-32.9, adult Status: Acute Assessment and Plan: Lifestyle and diet modifications (3) Essential hypertension: Code(s): I10 - Essential (primary) hypertension Status: Acute Assessment and Plan: Continue home meds. Patient is normotensive upon discharge. He was mildly hypertensive upon admission, but this normalized. (4) Osteoarthritis of thoracic spine: Code(s): M47.814 - Spondylosis without myelopathy or radiculopathy, thoracic region Status: Acute Assessment and Plan: Tylenol p.r.n. for pain (5) Malignant neoplasm of sigmoid colon: Code(s): C18.7 - Malignant neoplasm of sigmoid colon Status: Acute Assessment and Plan: Status post colon resection Follow-up in outpatient setting (6) DVT prophylaxis: Code(s): Z29.9 - Encounter for prophylactic measures, unspecified Status: Acute Assessment and Plan: SCDs & Lovenox DS: Summary Hospital Course Reason for hospitalization: Chest Pain Hospital Course: See above for full hospital course Status at Discharge Overall status at discharge: patient is progressing back to baseline Time Spent with Patient Time attestation: Total time spent providing and/or coordinating discharge services: 35min Time spent: Greater than 30 minutes Exam Narrative: GENERAL APPEARANCE: Alert and oriented x 3, in no apparent distress. HEENT: PERRL, EOMI. Sclerae anicteric. Moist mucous membranes. NECK: Supple. No JVD or obvious carotid bruits. RESPIRATORY: Respirations are nonlabored. Breath sounds are equal and clear bilaterally. No wheezes, Rhonchi, or rales. CARDIOVASCULAR: Regular rate and rhythm with normal S1-S2. No murmurs, gallops, or rubs. GASTROINTESTINAL: Soft, flat, and benign. No mass, tenderness, guarding, or rebound. No organomegaly or hernia. Bowel sounds are present. SKIN: Warm, dry, well perfused. Good turgor. No lesions, nodules, or rashes noted. Warm and dry. No rash or lesions on limited exam. EXTREMITIES: No cyanosis, clubbing, or edema. Radial and pedal pulses intact. NEUROLOGICAL: Alert. Cranial nerves 2-12 are grossly intact. No gross focal deficits to casual conversation. PSYCHIATRIC: Pleasant and cooperative with normal mood and affect. DS: Data Data Completed and Pending Labs on day of discharge: Labs from last 24 hours 12/03/21 12/03/21 12/03/21 08:47 08:47 06:52 WBC 8.4 RBC 5.08 Hgb 15.4 Hct 46.5 MCV 91.5 MCH 30.3 MCHC 33.1 RDW 12.1 Plt Count 286 MPV 10.2 Immature Gran % (Auto) 0.4 Neut % (Auto) 59.1 Lymph % (Auto) 27.2 [place] % (Auto) 9.3 H Eos % (Auto) 3.2 Baso % (Auto) 0.8 Lymph # (Auto) 2.27 [place] # (Auto) 0.8 H Eos # (Auto) 0.3 Baso # (Auto) 0.1 Abs Immat Gran (auto) 0.03 Absolute Neuts (auto) 4.9 Absolute Nucleated RBC 0.0 Nucleated RBC % 0.0 PT INR APTT Sodium 141 Potassium 4.1 Chloride 108 H Carbon Dioxide 25 Anion Gap 8 BUN 11 Creatinine 0.80 Estim Creat Clear Calc 101 Estimated GFR > 60 Glucose 109 Calcium 8.9 Total Bilirubin 0.5 AST 25 ALT 33 Alkaline Phosphatase 81 Troponin I < 0.012 Total Protein 7.0 Albumin 4.7 Lipase 12/02/21 12/02/21
== END 2021-12-03 12:45 | disposition home or self-care (01) ==
LOC: ANHED 23:39 → ANHIMU 12-03 00:31
PROVIDERS: Student in an Organized Health Care Education/Training Program; Admitting Provider Internal Medicine; Emergency Provider Emergency Medicine; PCP Family Medicine; Visit Provider Family Medicine
DX: R07.89 Other chest pain (principal); R06.02 Shortness of breath; E78.2 Mixed hyperlipidemia; I10 Essential (primary) hypertension; M47.814 Spondylosis without myelopathy or radiculopathy, thoracic region; H40.9 Unspecified glaucoma; Z87.891 Personal history of nicotine dependence; Z85.038 Personal history of other malignant neoplasm of large intestine; Z90.49 Acquired absence of other specified parts of digestive tract; E66.9 Obesity, unspecified; Z68.33 Body mass index [BMI] 33.0-33.9, adult; Z82.49 Family history of ischemic heart disease and other diseases of the circulatory system
CPT/HCPCS: 36415; 71046; 80053; 83690; 84484; 85025; 85610; 85730; 93005; 96372; 99285; A9270; G0378; J1650

== ENCOUNTER → 2022-06-14 10:03 | Outpatient (CLI) | payer MEDICARE, SELFPAY ==
--- NOTE | ~2022-06-14 | XR_ITS ---
EXAMINATION: XR thoracic spine 3V DATE: 06/14/2022 10:15 INDICATION: Mid back pain TECHNIQUE: AP, lateral and lateral swimmer's views of the thoracic spine were obtained. COMPARISON: 01/28/2018; MRI, 02/20/2018 FINDINGS: Bone alignment is normal. Again noted is mild chronic anterior wedging of the mid and lower thoracic spine without significant change. Small degenerative osteophytes project from the anterior endplates of multiple vertebral bodies. The bones are osteopenic which limits the sensitivity for fra cture however none is seen. IMPRESSION: 1. Mild thoracic spondylosis without acute findings or significant interval change. Reviewed, dictated and finalized at location B. MBLER FLEXIBLE LEADS IMPRESSION: 1. Mild thoracic spondylosis without acute findings or significant interval bibiana e.
== END ==
PROVIDERS: PCP Family Medicine; Visit Provider Physician Assistant Medical
DX: M47.894 Other spondylosis, thoracic region (principal)
CPT/HCPCS: 72072

== ENCOUNTER → 2023-10-01 08:55 | Outpatient (CLI) | payer MEDICARE, SELFPAY ==
--- NOTE | ~2023-10-01 | XR_ITS ---
EXAMINATION: XR lumbar spine 2-3V DATE: 10/01/2023 09:13 INDICATION: Low back pain, unspecified. TECHNIQUE: 3 views of lumbar spine were obtained. COMPARISON: Lumbar spine radiographs 04/18/2020, CT 02/26/2020 FINDINGS: There is 7 degrees levocurvature of lumbar spine. There are chronic compression fractures o f L1 and L3 with 1/5 loss of height. There is mildly decreased disc height at L3-L4. There are endpla te osteophytes at all levels. There is multilevel severe facet joint osteoarthritis. IMPRESSION: 1. Mild lumbar spondylosis. Reviewed, dictated and finalized at location A. DENTIAL THERAPIST IMPRESSION: 1. Mild lumbar spondylosis.
== END ==
PROVIDERS: PCP Nurse Practitioner Family; Visit Provider Nurse Practitioner Family
DX: M47.896 Other spondylosis, lumbar region (principal)
CPT/HCPCS: 72100

== ENCOUNTER 2024-09-15 13:42 | Outpatient (CLI) | payer OTHER, SELFPAY ==
--- NOTE | ~2024-09-15 | XR_ITS ---
HISTORY: M54.41 - Lumbago with sciatica, right side COMPARISON: 10/01/2023 TECHNIQUE: view lumbar spine. FINDINGS: Lumbar vertebral bodies are normally aligned. There are 5 non-rib bearing lumbar vertebral bodies. Redemonstration of chronic compression fractures of the superior endplates of L1 and L3. Diffuse bony demineralization is also noted along with severe facet arthropathy. Bridging osteophytes are again noted at the level of L1/L2 and L2/L3. Redemonstration of 7 degrees of levocurvature of the lumbar spine in the standing position. Densely calcified atherosclerotic disease. IMPRESSION: Significant degenerative disease, largely stable from prior examination performed approximately one y ear earlier Reviewed, dictated and finalized at location A. INAL MANAGER IMPRESSION: Significant degenerative disease, largely stable from prior examination perform ed approximately one year earlier
--- NOTE | ~2024-09-15 | XR_ITS ---
HISTORY: M24.80 - Other specific joint derangements of unspecified... COMPARISON: None TECHNIQUE: 4 views of the cervical spine were performed. FINDINGS: Visualization of the cervical spine to the inferior endplate of C7. Normal curvature of the cervical spine is identified. No prevertebral soft tissue swelling is appreciated. No acute compression fracture is noted. The dens is equidistant between the pillars, without asymmetry. Air column within the trachea is midline. The visualized portions of the bilateral upper lung avila are unremarkable. Significant degenerative disease is identified with osteophyte formation (most bridging) and disc spa ce narrowing within the lower cervical spine. IMPRESSION: Degenerative disease, without acute fracture. Reviewed, dictated and finalized at location A. GER POST
== END 2024-09-15 13:43 | disposition home or self-care (01) ==
LOC: MICIMG 13:43
PROVIDERS: PCP Family Medicine; Visit Provider Physician Assistant Medical
DX: M54.41 Lumbago with sciatica, right side (principal); M50.30 Other cervical disc degeneration, unspecified cervical region; M51.369 Other intervertebral disc degeneration, lumbar region without mention of lumbar back pain or lower extremity pain
CPT/HCPCS: 72050; 72100